=== PATIENT | female | born 1975 | race African-American/Black ===

== ENCOUNTER 2022-12-21 10:27 | Emergency (ER) | payer MEDICAID, OTHER ==
[~2022-12-21] VITALS: Ht 162.6 cm; Wt 63.0 kg
[2022-12-21] MEDS ORDERED: FLUORESCEIN SODIUM 1MG/STRIP EACHEYE ONE (14:45)
[2022-12-21] MEDS ORDERED: TETRACAINE 0.5% OPHTH DROPS 4ML LEFTEYE ONE (14:45)
[2022-12-21] MEDS ORDERED: OFLO5DRO3 LEFTEYE (16:43)
[2022-12-21 17:33] VITALS: BP 173/11
== END 2022-12-21 17:34 | disposition home or self-care (01) ==
LOC: ER 11:15
DX: S05.02XA Injury of conjunctiva and corneal abrasion without foreign body, left eye, initial encounter (principal); X58.XXXA Exposure to other specified factors, initial encounter; Y93.89 Activity, other specified; Y92.89 Other specified places as the place of occurrence of the external cause; Y99.8 Other external cause status
CPT/HCPCS: 99283